=== PATIENT | male | born 1965 | race Caucasian/White ===

== ENCOUNTER 2020-02-08 01:35 | Inpatient (IN) | payer OTHER ==
[~2020-02-08] VITALS: Ht 185.4 cm; Wt 131.3 kg
[~2020-02-08 01:35] MED LIST: ALDACTONE 25MG25 MG PO; ALDACTONE50 MG PO; AMITRIPTYLINE100 MG PO; AMLODIPINE BESYL5 MG PO; BACTRIM DS TAB1 EACH PO; BASAGLAR K100 UNIT/1 SQ; BETAPACE 80MG T80 MG PO; BUPRENORPHIN-N1 EACH PO; CALAN 40MG TABL40 MG PO; CHRONULAC20 GM/30 M PO; ELIQUIS5 MG PO; FAMOTIDINE20 MG PO; LACTULOSE10 GM/15 M PO; LASIX 40 MG TAB40 MG PO; LASIX20 MG PO; LOPRESSOR 25 MG25 MG PO; LOSARTAN-HCTZ1 EACH PO; METFORMIN HCL1000 MG PO; MOBIC15 MG PO; NORVASC 5 MG TAB5 MG PO; OMNICEF 300 MG300 MG PO; ONDANSETRON HCL4 MG PO; SOTALOL80 MG PO; SPIRONOLACTONE50 MG PO; XIFAXAN550 MG PO; ZOFRAN4 MG PO; [UNRECOGNIZED DRUG - OTHER] PO
[2020-02-08 02:23] LABS: HEMOGLOBIN 11.8 gm/dl (14.0-17.5); RED BLOOD COUNT 3.55 M/UL (4.20-5.50); WHITE BLOOD COUNT 9.4 K/UL (4.5-11.0)
[2020-02-08 02:57] LABS: BUN/CREATININE RATIO 9 (0-10)
[2020-02-08] MEDS ORDERED: LOPRESSOR 25 MG25 MG PO (13:05)
[2020-02-08] MEDS ORDERED: XIFAXAN 550 MG550 MG PO (13:06)
[2020-02-08] MEDS ORDERED: AMITRIPTYLINE100 MG PO (13:06)
[2020-02-08] MEDS ORDERED: MELOXICAM15 MG PO (13:06)
[2020-02-08] MEDS ORDERED: BUPRENORPHIN-N1 EACH SL (13:11)
[2020-02-09] MEDS ORDERED: AMLODIPINE BESYL5 MG PO (10:14)
[2020-02-09] MEDS ORDERED: LASIX40 MG PO (10:49)
[2020-02-09] MEDS ORDERED: SPIRONOLACTONE50 MG PO (10:49)
[2020-02-09] MEDS ORDERED: CALAN 40MG TABL40 MG PO (10:50)
[2020-02-09] MEDS ORDERED: ZOFRAN ODT 4 MG4 MG PO (10:51)
[2020-02-09] MEDS ORDERED: VIREAD300 MG PO (10:52)
[2020-02-09] MEDS ORDERED: LACTULOSE10 GM/151 PO (10:53)
[2020-02-09] MEDS ORDERED: MIRALAX 119 GR119 GM PO (10:55)
[2020-02-09 11:35] LABS: HEMOGLOBIN 11.6 gm/dl (14.0-17.5); RED BLOOD COUNT 3.45 M/UL (4.20-5.50); WHITE BLOOD COUNT 7.2 K/UL (4.5-11.0)
[2020-02-09 11:55] LABS: BUN/CREATININE RATIO 13 (0-10)
[2020-02-09] MEDS ORDERED: K-DUR TAB 20 M20 MEQ PO (15:52)
[2020-02-10 07:34] LABS: HEMOGLOBIN 11.3 gm/dl (14.0-17.5); RED BLOOD COUNT 3.53 M/UL (4.20-5.50); WHITE BLOOD COUNT 7.7 K/UL (4.5-11.0)
--- NOTE | 2020-02-10 17:38 | NUR ---
PATIENT HAVING CRAMPING ON LOWER EXTRIMITIES. REPORTED TO DR. QURESHI AND RECEIVED ORDER
[2020-02-11 03:43] LABS: HEMOGLOBIN 11.6 gm/dl (14.0-17.5); RED BLOOD COUNT 3.48 M/UL (4.20-5.50); WHITE BLOOD COUNT 7.9 K/UL (4.5-11.0)
--- NOTE | 2020-02-11 17:22 | NUR ---
REPORT GIVEN TO ADMITTING NURSE OF [facility]
[2020-03-12] MEDS ORDERED: BUPRENORPHIN-N1 EACH SL (08:38)
[2020-03-12] MEDS ORDERED: NADOLOL20 MG PO (11:20)
== END 2020-02-11 17:33 | disposition home health service (06) | DRG 432 ==
LOC: ER1 01:35 → M/S 03:39 → CDU 03:39 → M/S 15:31
PROVIDERS: Internal Medicine; Physician Assistant Medical; Surgery; ADMIT Internal Medicine
PROC: 0W9930Z Drainage of Right Pleural Cavity with Drainage Device, Percutaneous Approach (ICD-10-PCS; principal; 2020-02-11 07:30)
DX: K74.60 Unspecified cirrhosis of liver (principal); K76.7 Hepatorenal syndrome; J96.01 Acute respiratory failure with hypoxia; J90 Pleural effusion, not elsewhere classified; N17.9 Acute kidney failure, unspecified; Z20.828 Contact with and (suspected) exposure to other viral communicable diseases; E87.1 Hypo-osmolality and hyponatremia; I13.0 Hypertensive heart and chronic kidney disease with heart failure and stage 1 through stage 4 chronic kidney disease, or unspecified chronic kidney disease; I50.32 Chronic diastolic (congestive) heart failure; J94.2 Hemothorax; I47.2 Ventricular tachycardia; D64.9 Anemia, unspecified; D69.6 Thrombocytopenia, unspecified; F17.210 Nicotine dependence, cigarettes, uncomplicated; E11.22 Type 2 diabetes mellitus with diabetic chronic kidney disease; N18.30 Chronic kidney disease, stage 3 unspecified; Z90.49 Acquired absence of other specified parts of digestive tract; Z83.3 Family history of diabetes mellitus; Z86.711 Personal history of pulmonary embolism; Z79.01 Long term (current) use of anticoagulants; Z79.4 Long term (current) use of insulin; Z79.899 Other long term (current) drug therapy
CPT/HCPCS: 36415; 71045; 80048; 80053; 82550; 82553; 82962; 83690; 83735; 83874; 83880; 84439; 84443; 84484; 85025; 85027; 93005; 96374; 99285; C1729; J0690; J1940; J2001; J2704; J3010; J7030; J7040; J7120; U0002

== ENCOUNTER 2020-02-14 10:43 | Observation (INO) | payer OTHER ==
[~2020-02-14] VITALS: Ht 185.4 cm; Wt 131.5 kg
[~2020-02-14 10:43] MED LIST changes: +BUPRENORPHIN-N1 EACH SL; +K-DUR TAB 20 M20 MEQ PO; +LACTULOSE10 GM/151 PO; +LASIX40 MG PO; +MELOXICAM15 MG PO; +MIRALAX 119 GR119 GM PO; +VIREAD300 MG PO; +XIFAXAN 550 MG550 MG PO; +ZOFRAN ODT 4 MG4 MG PO
[2020-02-14 11:47] LABS: HEMOGLOBIN 11.8 gm/dl (14.0-17.5); RED BLOOD COUNT 3.58 M/UL (4.20-5.50); WHITE BLOOD COUNT 7.8 K/UL (4.5-11.0)
[2020-02-14 11:59] LABS: BUN/CREATININE RATIO 14 (0-10)
[2020-02-15 06:19] LABS: HEMOGLOBIN 12.4 gm/dl (14.0-17.5); RED BLOOD COUNT 3.78 M/UL (4.20-5.50); WHITE BLOOD COUNT 7.6 K/UL (4.5-11.0)
--- NOTE | 2020-02-15 18:51 | NUR ---
1750: FAMILY DINNER SERVICE SPECIALIST [employer] CONSULTANT VISITS, RN INSTRUCTED TO DRAIN PLUREX DRAIN IN RIGHT CHEST WALL. UNDER STERILE TECHNIQUE, PLUREX DRAINED A TOTAL OF 650 ML OF PASTEL YELLOW FLUID, PATIENT TOLERATED WELL. FAMILY DINNER SERVICE SPECIALIST STATES PLUREX WILL REQUIRED DRAINAGE Q 2 - 3 DAYS. NEW CAP APPLIED TO PLUREX DRAIN AT COMPLETION.
[2020-02-16 03:21] LABS: HEMOGLOBIN 11.8 gm/dl (14.0-17.5); RED BLOOD COUNT 3.64 M/UL (4.20-5.50)
[2020-02-16 03:41] LABS: BUN/CREATININE RATIO 14 (0-10)
[2020-02-17 10:01] LABS: HEMOGLOBIN 12.3 gm/dl (14.0-17.5); RED BLOOD COUNT 3.76 M/UL (4.20-5.50); WHITE BLOOD COUNT 9.2 K/UL (4.5-11.0)
[2020-02-17] MEDS ORDERED: MUPIROCIN30 GM TOP (11:46)
[2020-02-17] MEDS ORDERED: LASIX40 MG PO (11:46)
[2020-02-17] MEDS ORDERED: CLINDAMYCIN HC300 MG PO (11:48)
[2020-02-17] MEDS ORDERED: LACTINEX TABLET1 EA PO (11:48)
--- NOTE | 2020-02-17 14:22 | NUR ---
1415: PER PATIENTS MOTHER REQUEST, PLUREX DRAINED D/T MOTHERS CONCERN OF WHEN HH SERVICES WOULD BE ABLE TO COME AND SEE PATIENT. UNDER STERILE TECHNIQUE, RN DRAINED 250 ML OF PALE YELLOW FLUID FROM RIGHT CHEST WALL PLUREX DRAIN. PATIENT TOLERATED WELL. NEW CAP APPLIED AND SITE DRESSED APPROPRIATELY.
[2020-03-12] MEDS ORDERED: BUPRENORPHIN-N1 EACH SL (08:38)
[2020-03-12] MEDS ORDERED: NADOLOL20 MG PO (11:20)
== END 2020-02-17 15:44 | disposition home or self-care (01) ==
LOC: ER1 10:43 → MED SURG 4 14:23 → CDU 14:23 → MED SURG 4 17:04
PROVIDERS: Emergency Medicine; Physician Assistant; ADMIT Family Medicine
DX: K72.90 Hepatic failure, unspecified without coma (principal); K74.60 Unspecified cirrhosis of liver; R18.8 Other ascites; J94.8 Other specified pleural conditions; K76.6 Portal hypertension; J91.8 Pleural effusion in other conditions classified elsewhere; L03.313 Cellulitis of chest wall; B19.9 Unspecified viral hepatitis without hepatic coma; D64.9 Anemia, unspecified; J96.11 Chronic respiratory failure with hypoxia; E11.65 Type 2 diabetes mellitus with hyperglycemia; I47.2 Ventricular tachycardia; I45.81 Long QT syndrome; D69.6 Thrombocytopenia, unspecified; I13.0 Hypertensive heart and chronic kidney disease with heart failure and stage 1 through stage 4 chronic kidney disease, or unspecified chronic kidney disease; I50.32 Chronic diastolic (congestive) heart failure; N18.30 Chronic kidney disease, stage 3 unspecified; E11.22 Type 2 diabetes mellitus with diabetic chronic kidney disease; Z86.711 Personal history of pulmonary embolism; Z79.01 Long term (current) use of anticoagulants; Z79.4 Long term (current) use of insulin; Z79.899 Other long term (current) drug therapy; Z20.828 Contact with and (suspected) exposure to other viral communicable diseases
CPT/HCPCS: 36415; 51701; 70450; 71045; 80053; 81001; 82140; 82962; 83605; 83735; 83880; 84100; 85025; 85027; 87040; 87086; 93005; 96365; 96366; 96367; 96368; 96375; 96376; 99285; G0378; G0480; J1940; J2543; J3370; J3475; J7030; Q9967; U0002

== ENCOUNTER → 2020-03-10 | Outpatient (CLI) | payer OTHER ==
[~2020-03-10] MED LIST changes: +CLINDAMYCIN HC300 MG PO; +LACTINEX TABLET1 EA PO; +MUPIROCIN30 GM TOP; +NADOLOL20 MG PO; +NORVASC5 MG PO
[2020-03-11 10:14] LABS: HBSAG SCREEN Positive (Negative); HEP B CORE AB, TOT Positive (Negative); HEP C VIRUS AB 0.2 (0.0-0.9)
== END ==
LOC: OPSV 03-06 10:00
PROVIDERS: Internal Medicine Gastroenterology
DX: R74.8 Abnormal levels of other serum enzymes (principal); R18.8 Other ascites
CPT/HCPCS: 36415; 80048; 86704; 86706; 86708; 86803; 87340

== ENCOUNTER → 2020-03-12 | Day surgery (SDC) | payer OTHER | END | disposition home or self-care (01) | LOC: OR 07:41 | PROVIDERS: Internal Medicine Gastroenterology | DX: K76.6 Portal hypertension (principal); K74.60 Unspecified cirrhosis of liver; K31.89 Other diseases of stomach and duodenum; I85.10 Secondary esophageal varices without bleeding; K21.00 Gastro-esophageal reflux disease with esophagitis, without bleeding; E11.9 Type 2 diabetes mellitus without complications; I10 Essential (primary) hypertension; I25.10 Atherosclerotic heart disease of native coronary artery without angina pectoris; F17.200 Nicotine dependence, unspecified, uncomplicated; Z79.01 Long term (current) use of anticoagulants; Z79.4 Long term (current) use of insulin; Z79.899 Other long term (current) drug therapy | CPT/HCPCS: 36415; 80048; 80076; 82962; 87350; J7040 ==

== ENCOUNTER 2020-03-18 11:13 | Inpatient (IN) | payer OTHER ==
[~2020-03-18] VITALS: Ht 185.4 cm; Wt 113.9 kg
[~2020-03-18 11:13] MED LIST changes: -NORVASC5 MG PO
[2020-03-18 14:00] LABS: HEMOGLOBIN 12.8 gm/dl (14.0-17.5); RED BLOOD COUNT 4.02 M/UL (4.20-5.50); WHITE BLOOD COUNT 6.8 K/UL (4.5-11.0)
[2020-03-18] MEDS ORDERED: AMITRIPTYLINE100 MG PO (17:34)
[2020-03-18] MEDS ORDERED: MOBIC15 MG PO (17:36)
[2020-03-18] MEDS ORDERED: XIFAXAN550 MG PO (17:38)
[2020-03-18] MEDS ORDERED: NORVASC5 MG PO (17:41)
[2020-03-18] MEDS ORDERED: LOPRESSOR 25 MG25 MG PO (17:43)
[2020-03-18 23:01] LABS: HEMOGLOBIN 11.2 gm/dl (14.0-17.5); RED BLOOD COUNT 3.62 M/UL (4.20-5.50); WHITE BLOOD COUNT 5.2 K/UL (4.5-11.0)
[2020-03-18 23:23] LABS: BUN/CREATININE RATIO 15 (0-10)
--- NOTE | 2020-03-18 23:29 | NUR ---
PATIENT HAS BEEN NONCOMPLIANT ON THE KENNEL AIDE SINCE ARRIVAL TO FLOOR. WHEN PATIENT HAD BEEN COMPLIANT, RHYTHM WAS SINUS. PATIENT REQUESTED TO SIT ON THE SIDE OF THE BED WITH NO LEADS ON. MD NOTIFIED OF PATIENTS CONFUSION AND NOT STAYING IN BED, AMMONIA LEVEL OF 178 AND NONCOMPLIANCE. MD ORDERED GEODON 10MG IM. MEDICATION WAS GIVEN. I FIXED THE LEADS ON PATIENT AND WHEN HE WAS HOOKED UP TO THE MONITOR, PATIENT WAS IN V-TACH. RAPID RESPONSE CALLED AT 22:12:45. PACER PADS ATTACHED TO PATIENT AND CRASH CART BROUGHT TO BEDSIDE. SHOCK WAS ADVISED AND PATIENT RECIEVED SHOCK AT 22:13:15. PATIENT CONVERTED TO SINUS TACHYCARDIA. MD MADE AWARE OF PATIENT CONDITION AND PATIENT BEING SHOCKED WHILE AT BEDSIDE. BLOOD GLUCOSE WAS CHECKED; 284 AND LABS AND EKG DONE. PATIENT NOW RESTING PEACEFULLY.
[2020-03-19 02:28] LABS: HEMOGLOBIN 10.9 gm/dl (14.0-17.5); RED BLOOD COUNT 3.48 M/UL (4.20-5.50); WHITE BLOOD COUNT 5.8 K/UL (4.5-11.0)
[2020-03-20 02:51] LABS: HEMOGLOBIN 10.6 gm/dl (14.0-17.5); RED BLOOD COUNT 3.36 M/UL (4.20-5.50)
[2020-03-20 02:56] LABS: WHITE BLOOD COUNT 7.4 K/UL (4.5-11.0)
[2020-03-20 06:23] LABS: HEMOGLOBIN 10.5 gm/dl (14.0-17.5); RED BLOOD COUNT 3.37 M/UL (4.20-5.50); WHITE BLOOD COUNT 7.7 K/UL (4.5-11.0)
[2020-03-20 06:48] LABS: BUN/CREATININE RATIO 21 (0-10)
--- NOTE | 2020-03-20 07:18 | NUR ---
SEE PROVIDER COMMUNICATIONS WITH DR CALABRESE; SYNCHRONIZED SHOCK AT 0535; PT TOLERATED WELL, CURRENTLY NSR HR 60
[2020-03-21 05:04] LABS: HEMOGLOBIN 10.4 gm/dl (14.0-17.5); RED BLOOD COUNT 3.32 M/UL (4.20-5.50); WHITE BLOOD COUNT 7.2 K/UL (4.5-11.0)
[2020-03-22 05:53] LABS: HEMOGLOBIN 11.7 gm/dl (14.0-17.5); WHITE BLOOD COUNT 7.7 K/UL (4.5-11.0)
[2020-03-22 06:03] LABS: RED BLOOD COUNT 3.76 M/UL (4.20-5.50)
== END 2020-03-22 14:46 | disposition short-term general hospital (02) | DRG 441 ==
LOC: ER1 11:13 → CDU 17:27 → PROG CARE 21:49 → CCU 03-20 14:11
PROVIDERS: Emergency Medicine; Family Medicine; Internal Medicine; Physician Assistant Medical; ADMIT Internal Medicine Infectious Disease
PROC: 5A2204Z Restoration of Cardiac Rhythm, Single (ICD-10-PCS; principal; 2020-03-22)
DX: K72.00 Acute and subacute hepatic failure without coma (principal); J69.0 Pneumonitis due to inhalation of food and vomit; I85.10 Secondary esophageal varices without bleeding; N17.9 Acute kidney failure, unspecified; Z20.822 Contact with and (suspected) exposure to COVID-19; I47.2 Ventricular tachycardia; J90 Pleural effusion, not elsewhere classified; J96.11 Chronic respiratory failure with hypoxia; I50.32 Chronic diastolic (congestive) heart failure; E87.1 Hypo-osmolality and hyponatremia; B19.10 Unspecified viral hepatitis B without hepatic coma; K74.60 Unspecified cirrhosis of liver; F17.210 Nicotine dependence, cigarettes, uncomplicated; N18.30 Chronic kidney disease, stage 3 unspecified; E87.5 Hyperkalemia; E11.9 Type 2 diabetes mellitus without complications; D69.59 Other secondary thrombocytopenia; Z99.81 Dependence on supplemental oxygen; Z83.3 Family history of diabetes mellitus; Z79.01 Long term (current) use of anticoagulants; Z79.4 Long term (current) use of insulin; Z79.899 Other long term (current) drug therapy; Z86.711 Personal history of pulmonary embolism
CPT/HCPCS: 36415; 36600; 70450; 71045; 80048; 80053; 81001; 82140; 82550; 82553; 82803; 82962; 83605; 83735; 83874; 84100; 84484; 85025; 85027; 85610; 87040; 87086; 90471; 93005; 96372; 96374; 96375; 96376; 99285; J1335; J2001; J2060; J2543; J3475; J3486; J7030; J7040; P9047; U0002